=== PATIENT | female | born 1955 | race African-American/Black ===

== ENCOUNTER → 2021-07-24 | Outpatient (CLI) | payer OTHER ==
--- NOTE | 2021-07-24 17:00 | RAD ---
EXAM: 1. CHEST 2 VIEWS. 2. THORACIC SPINE 3 VIEWS. HISTORY: Weight loss, chest and back pain. COMPARISON: None. FINDINGS: A minimal mid thoracic dextrocurvature is within normal limits. Vertebral body heights are maintained, and no fractures are identified. There are no suspicious osseous lesions by radiographs. Mid and upper thoracic degenerative disc disease is mild. The lungs are expanded to the 12th posterior ribs with some hemidiaphragmatic flattening. There are n o confluent infiltrates. There is no pneumothorax or pleural effusion. The heart is not enlarged. IMPRESSION: 1. Correlate for chronic obstructive pulmonary disease. No confluent infiltrates. 2. Mild mid and upper thoracic degenerative disc disease. Electronically signed by: Brenda Garner MD (07/24/2021 4:58 PM) [id number]
== END ==
LOC: RAD 13:29
PROVIDERS: ATTEND Family Medicine
DX: M51.24 Other intervertebral disc displacement, thoracic region (principal); J98.6 Disorders of diaphragm; R63.4 Abnormal weight loss
CPT/HCPCS: 71046; 72072